=== PATIENT | female | born 1985 | race Caucasian/White ===

== ENCOUNTER 2021-09-20 12:18 | Emergency (ER) | payer BC, OTHER ==
[~2021-09-20] VITALS: Ht 165.1 cm; Wt 74.8 kg
[2021-09-20 12:30] VITALS: BP 107/67
--- NOTE | 2021-09-20 12:32 | NUR ---
PT TO AWAIT IN LOBBY
--- NOTE | 2021-09-20 13:16 | NUR ---
PT AMBULATED TO ER BED 2
[2021-09-20 13:20] LABS: BASOPHILS # (AUTO) 0.1 K/uL (0.00-0.22); BASOPHILS % (AUTO) 0.7 % (0.0-2.0); EOSINOPHILS # (AUTO) 0.2 K/uL (0-0.4); EOSINOPHILS % (AUTO) 2.4 % (0.0-4.0); HEMATOCRIT 35.1 % (36-48); HEMOGLOBIN 11.5 g/dL (12.0-16.0); LYMPHOCYTES # (AUTO) 2.6 K/uL (2.5-16.5); LYMPHOCYTES % (AUTO) 29.9 % (20.5-51.1); MEAN CORPUSCULAR HEMOGLOBIN 27 pg (27-31); MEAN CORPUSCULAR HGB CONC 33 g/dL (33-37); MEAN CORPUSCULAR VOLUME 80.9 fL (80-94); MONOCYTES # (AUTO) 0.6 K/uL (0.8-1.0); MONOCYTES % (AUTO) 7.4 % (1.7-9.3); NEUTROPHILS # (AUTO) 5.1 K/uL (1.8-7.7); NEUTROPHILS % (AUTO) 59.6 % (42.2-75.2); PLATELET COUNT (AUTO) 318 K/uL (140-450); RED BLOOD CELL COUNT(AUTO) 4.33 MIL/uL (4.20-5.40); RED CELL DISTRIBUTION WIDTH 16.7 % (11.6-13.7); WHITE BLOOD COUNT (AUTO) 8.5 K/uL (4.8-10.8)
[2021-09-20 13:45] LABS: ALBUMIN 3.4 g/dL (3.4-5.0); ANION GAP 12.6 (8-16); CARBON DIOXIDE 26.4 mmol/L (21-32); CREATININE 0.9 mg/dL (0.6-1.3); TOTAL BILIRUBIN 0.2 mg/dL (0.0-1.0)
[2021-09-20] MEDS ORDERED: KETOROLAC 30 MG/ML VIAL IM SCH (14:55)
--- NOTE | 2021-09-20 16:35 | NUR ---
ermd at bedside to explain results to pt
[2021-09-20 16:47] VITALS: BP 115/67
--- NOTE | 2021-09-20 16:47 | NUR ---
Patient discharged with v/s stable. Written and verbal after care instructions given and explained. Patient verbalized understanding. Ambulatory with steady gait. All questions addressed prior to discharge. Advised to follow up with PMD.
[2021-09-20 17:11] LABS: APPEARANCE,URINE CLOUDY (CLEAR); BILIRUBIN,URINE NEGATIVE (NEGATIVE); BLOOD, URINE 1+ (NEGATIVE); COLOR,URINE YELLOW (YELLOW); LEUKOCYTE ESTERASE ,URINE 3+ (NEGATIVE); NITRITE, URINE NEGATIVE (NEGATIVE); UGLUCOSE NEGATIVE (NEGATIVE)
[2021-09-20 17:23] LABS: WBC,URINE 20-60 /HPF (0-5)
== END 2021-09-20 16:47 | disposition home or self-care (01) ==
LOC: MED 12:18
DX: R10.9 Unspecified abdominal pain (principal); R07.81 Pleurodynia
CPT/HCPCS: 36415; 71101; 76700; 80053; 81001; 81025; 83690; 85025; 87086; 99285; Q0092

== ENCOUNTER 2021-11-09 11:32 | Emergency (ER) | payer BC ==
[~2021-11-09] VITALS: Ht 154.9 cm; Wt 73.0 kg
[2021-11-09 11:45] VITALS: BP 110/65
--- NOTE | 2021-11-09 11:52 | NUR ---
Patient ambulated with steady gait to bed 6.
--- NOTE | 2021-11-09 12:11 | NUR ---
36 Y/O F C/O VAGINAL BLEEDING FOR ONE DAY, SHE WOKE UP TODAY W MORE BLOOD THAN YESTER AND LOWER BACK PAIN. HEADACHE 05/27.
--- NOTE | 2021-11-09 12:15 | NUR ---
KALLIE CLARK AT BEDSIDE.
--- NOTE | 2021-11-09 12:34 | NUR ---
ULTRASOUND AT BEDSIDE.
--- NOTE | 2021-11-09 12:42 | NUR ---
LAB AT BEDSIDE.
[2021-11-09 12:57] LABS: APPEARANCE,URINE SL CLOUDY (CLEAR); BILIRUBIN,URINE NEGATIVE (NEGATIVE); BLOOD, URINE 3+ (NEGATIVE); COLOR,URINE YELLOW (YELLOW); LEUKOCYTE ESTERASE ,URINE 2+ (NEGATIVE); NITRITE, URINE NEGATIVE (NEGATIVE); UGLUCOSE NEGATIVE (NEGATIVE)
[2021-11-09] MEDS ORDERED: ACETAMINOPHEN 325 MG TAB PO ONE (13:00)
[2021-11-09 13:21] LABS: BASOPHILS % (AUTO) 0.3 % (0.0-2.0); EOSINOPHILS # (AUTO) 0.3 K/uL (0-0.4); EOSINOPHILS % (AUTO) 3.5 % (0.0-4.0); HEMATOCRIT 35.6 % (36-48); HEMOGLOBIN 11.7 g/dL (12.0-16.0); LYMPHOCYTES % (AUTO) 27.2 % (20.5-51.1); MEAN CORPUSCULAR HEMOGLOBIN 27 pg (27-31); MEAN CORPUSCULAR HGB CONC 33 g/dL (33-37); MEAN CORPUSCULAR VOLUME 83.5 fL (80-94); MONOCYTES # (AUTO) 0.8 K/uL (0.8-1.0); MONOCYTES % (AUTO) 10.5 % (1.7-9.3); NEUTROPHILS # (AUTO) 4.2 K/uL (1.8-7.7); NEUTROPHILS % (AUTO) 58.5 % (42.2-75.2); PLATELET COUNT (AUTO) 246 K/uL (140-450); RED BLOOD CELL COUNT(AUTO) 4.26 MIL/uL (4.20-5.40); RED CELL DISTRIBUTION WIDTH 17.8 % (11.6-13.7); WHITE BLOOD COUNT (AUTO) 7.2 K/uL (4.8-10.8)
[2021-11-09 13:32] LABS: RBC,URINE 11-20 (MOD) /HPF (0-5)
[2021-11-09] MEDS ORDERED: NITR100C7 PO (14:20)
[2021-11-09] MEDS ORDERED: ACET-10509 PO (14:20)
--- NOTE | 2021-11-09 14:25 | NUR ---
EDUARDO ARREGUIN AT BEDSIDE.
--- NOTE | 2021-11-09 14:43 | NUR ---
Patient discharged with v/s stable. Written and verbal after care instructions given and explained. Patient alert, oriented and verbalized understanding of instructions. Ambulatory with steady gait. All questions addressed prior to discharge. ID band removed. Patient advised to follow up with PMD. Rx of ACETAMINOPHEN TAB, NITROFURANTOIN MONOHYD/M-CYST given. Opportunity to ask questions provided and answered.
--- NOTE | 2021-11-09 14:45 | NUR ---
Chart checked and completed. The patient's care was reviewed and supervised by Keren Collado RN.
== END 2021-11-09 14:45 | disposition home or self-care (01) ==
LOC: MED 11:32
DX: O20.0 Threatened abortion (principal); O23.41 Unspecified infection of urinary tract in pregnancy, first trimester; Z3A.09 9 weeks gestation of pregnancy; Z79.899 Other long term (current) drug therapy
CPT/HCPCS: 36415; 76817; 81001; 81025; 84702; 85025; 86900; 86901; 87086; 99284; Q0092